=== PATIENT | male | born 1950 | race African-American/Black ===

== ENCOUNTER 2018-07-21 04:30 | Observation (INO) ==
[2018-07-21] MEDS ORDERED: MORPHINE 4 MG/1 ML VIAL IV STA (04:57)
[2018-07-21] MEDS ORDERED: ONDANSETRON 4 MG/2 ML VIAL IV ONE (04:57)
[2018-07-21] MEDS ORDERED: NITROGLYCERIN SL 0.4 MG TABLET SL STA (04:57)
[2018-07-21 05:06] LABS: Basophils % 0.2 % (0.0-0.8); Eosinophils # 0.2 10*3/uL (0.0-0.87); Eosinophils % 3.5 % (0.00-10.9); Hematocrit 37.5 VOL% (42.0-52.0); Hemoglobin 11.7 GM/DL (14.0-18.0); Immature Granulocytes % 0.7 %; Immature Granulocytes Absolute 0.03 #; Lymphocytes # 1.3 10*3/uL (1.4-4.0); Lymphocytes % 29.8 % (21.2-54.2); Mean Corpuscular HGB Conc 31.2 GM/DL (32-36); Mean Corpuscular Hemoglobin 30 PG (27-34); Mean Corpuscular Volume 96.4 FL (87-102); Mean Platelet Volume 10.1 FL (9.6-12.0); Monocytes # 0.7 10*3/uL (0.11-0.8); Monocytes % 16.7 % (1.7-12.7); Neutrophils # 2.1 10*3/uL (1.4-7.4); Neutrophils % 49.1 % (38.7-73.9); Platelet Count 211 T/CUMM (130-400); Red Blood Count 3.89 MC/CUMM (3.8-5.5); Red Cell Distribution Width 13.9 % (9.3-17.3); White Blood Count 4.3 T/CUMM (4-12)
[2018-07-21 05:27] LABS: INR 0.9; Partial Thromboplastin Time 30.5 SECS (0-40)
[2018-07-21 05:29] LABS: Alanine Aminotransferase 18 U/L (16-61); Albumin 3.3 G/DL (3.4-5.0); Alkaline Phosphatase 80 U/L (45-117); Aspartate Amino Transferase 12 U/L (0-37); Bilirubin,Total < 0.39 MG/DL (0.2-1.0); Blood Urea Nitrogen 21 MG/DL (7-18); Calcium 8.9 MG/DL (8.5-10.1); Glucose 153 MG/DL (74-106); Osmolality,Calculated 284.4 MOS/KG (273-304); Potassium 4.4 MMOL/L (3.5-5.1); Sodium 140 MMOL/L (136-145); Total Protein 6.7 G/DL (6.4-8.3)
[2018-07-21 05:40] LABS: Atypical Lymphocytes Few; Eosinophils 4 % (0-10); Lymphocytes 42 % (20-55); Segmented Neutrophils 45 % (50-85); Total Cells Counted 100
[2018-07-21 05:41] LABS: Hypochromasia 1+; Platelet Estimate Normal
[2018-07-21] MEDS ORDERED: GLUCAGON 1 MG VIAL IM PRN (06:03)
[2018-07-21] MEDS ORDERED: ONDANSETRON 4 MG/2 ML VIAL IV PRN (06:03)
[2018-07-21] MEDS ORDERED: MORPHINE 4 MG/1 ML VIAL IV PRN (06:03)
[2018-07-21] MEDS ORDERED: MAGNESIUM SULF RIDER 4 GM in PREMIX 1 EACH IV PRN (06:03)
[2018-07-21] MEDS ORDERED: NICOTINE 21 MG/24 HR PATCH TRANSDERM PRN (06:03)
[2018-07-21] MEDS ORDERED: POTASSIUM CHLORIDE 20 MEQ TABLET PO PRN (06:03)
[2018-07-21] MEDS ORDERED: MAGNESIUM SULF RIDER 2 GM in PREMIX 1 EACH IV PRN (06:03)
[2018-07-21] MEDS ORDERED: guaiFENesin/DM ER 600-30 MG TABLET PO PRN (06:03)
[2018-07-21] MEDS ORDERED: BISACODYL 5 MG TABLET PO PRN (06:03)
[2018-07-21] MEDS ORDERED: ACETAMINOPHEN 325 MG TABLET PO PRN (06:03)
[2018-07-21] MEDS ORDERED: NITROGLYCERIN SL 0.4 MG TABLET SL PRN (06:03)
[2018-07-21] MEDS ORDERED: DEXTROSE 50% 25 GM/50 ML VIAL IV PRN (06:03)
[2018-07-21] MEDS ORDERED: diphenhydrAMINE CAP 25 MG CAPSULE PO PRN (06:03)
[2018-07-21] MEDS ORDERED: AMITRIPTYLINE 10 MG TABLET PO PRN (06:10)
[2018-07-21 06:30] LABS: Risk Ratio 3.31; Thyroid Stimulating Hormone 2.38 uIU/ml (0.358-3.74); VLDL CHOLESTEROL 30.8 MG/DL
[2018-07-21 06:48] LABS: Apearance,Urine CLEAR (Clear); Bacteria,Urine Occasional /HPF (Few); Bilirubin,Urine Negative (Negative); Blood, Urine Negative (Negative); Glucose,Urine (UA) Negative (Negative); Ketones,Urine Negative (Negative); Nitrite,Urine Negative (Negative); Protein,Urine Negative; RBC,Urine <1 /HPF (0-4); Urine Color Straw (Yellow); Urine Specific Gravity 1.009 (1.001-1.035); Urine Urobilinogen < 2.0 EU/DL (0.2-1.0); WBC,Urine <1 /HPF (0-6)
[2018-07-21] MEDS ORDERED: INFLUENZA VIRUS VACCINE 0.5 ML SYRINGE IM ONE (08:00)
[2018-07-21] MEDS: ENOXAPARIN 40 MG/0.4 ML SYRINGE SUBCUT SCH (09:08)
[2018-07-21] MEDS: CITALOPRAM 20 MG TABLET PO SCH (09:16)
[2018-07-21] MEDS: CARVEDILOL 25 MG TABLET PO SCH ×2 (09:16→21:41)
[2018-07-21] MEDS: CLOPIDOGREL 75 MG TABLET PO SCH (09:16)
[2018-07-21] MEDS: hydroCHLOROthiazide 12.5 MG CAPSULE PO SCH (09:16)
[2018-07-21] MEDS: ASPIRIN 325 MG TABLET PO SCH (09:16)
[2018-07-21] MEDS: LISINOPRIL 20 MG TABLET PO SCH (09:16)
[2018-07-21] MEDS: amLODIPine 5 MG TABLET PO SCH (09:16)
[2018-07-21] MEDS: PANTOPRAZOLE 40 MG TABLET PO SCH (09:17)
[2018-07-21] MEDS: INSULIN REGULAR 100 UNIT/ML SUBCUT SCH ×2 (12:21→17:53)
[2018-07-21] MEDS ORDERED: metFORMIN 500 MG TABLET PO SCH (17:00)
[2018-07-21] MEDS: INSULIN LISPRO PROTAMINE/LISPRO 75/25 100 UNIT/ML SUBCUT SCH (18:01)
[2018-07-21] MEDS ORDERED: ATORVASTATIN 40 MG TABLET PO SCH (21:00)
[2018-07-21] MEDS: ATORVASTATIN 40 MG TABLET PO SCH (21:41)
[2018-07-22] MEDS: INSULIN REGULAR 100 UNIT/ML SUBCUT SCH ×4 (01:25→18:13)
[2018-07-22 04:41] LABS: Basophils % 0.3 % (0.0-0.8); Eosinophils # 0.1 10*3/uL (0.0-0.87); Eosinophils % 3.5 % (0.00-10.9); Hematocrit 34.9 VOL% (42.0-52.0); Immature Granulocytes % 0.3 %; Immature Granulocytes Absolute 0.01 #; Lymphocytes # 0.9 10*3/uL (1.4-4.0); Lymphocytes % 29.9 % (21.2-54.2); Mean Corpuscular HGB Conc 31.5 GM/DL (32-36); Mean Corpuscular Hemoglobin 30 PG (27-34); Mean Corpuscular Volume 95.6 FL (87-102); Mean Platelet Volume 10.3 FL (9.6-12.0); Monocytes # 0.5 10*3/uL (0.11-0.8); Monocytes % 17.4 % (1.7-12.7); Neutrophils # 1.4 10*3/uL (1.4-7.4); Neutrophils % 48.6 % (38.7-73.9); Platelet Count 188 T/CUMM (130-400); Red Blood Count 3.65 MC/CUMM (3.8-5.5); Red Cell Distribution Width 13.9 % (9.3-17.3); White Blood Count 2.9 T/CUMM (4-12)
[2018-07-22 05:05] LABS: Albumin 3.1 G/DL (3.4-5.0); Bilirubin,Total 0.6 MG/DL (0.2-1.0); Calcium 8.7 MG/DL (8.5-10.1); Osmolality,Calculated 283.3 MOS/KG (273-304); Total Protein 6.3 G/DL (6.4-8.3)
[2018-07-22 05:38] LABS: Eosinophils 4 % (0-10); Lymphocytes 40 % (20-55); Metamyelocytes 1 %; Myelocytes 2 %; Segmented Neutrophils 43 % (50-85); Total Cells Counted 100
[2018-07-22 05:39] LABS: Hypochromasia 1+; Microcytosis 1+; Platelet Estimate Adequate
[2018-07-22] MEDS: ENOXAPARIN 40 MG/0.4 ML SYRINGE SUBCUT SCH (06:13)
[2018-07-22] MEDS: ASPIRIN 325 MG TABLET PO SCH (08:43)
[2018-07-22] MEDS: CARVEDILOL 25 MG TABLET PO SCH ×2 (08:43→20:44)
[2018-07-22] MEDS: CLOPIDOGREL 75 MG TABLET PO SCH (08:43)
[2018-07-22] MEDS: CITALOPRAM 20 MG TABLET PO SCH (08:43)
[2018-07-22] MEDS: amLODIPine 5 MG TABLET PO SCH (08:43)
[2018-07-22] MEDS: LISINOPRIL 20 MG TABLET PO SCH (08:43)
[2018-07-22] MEDS: PANTOPRAZOLE 40 MG TABLET PO SCH (08:43)
[2018-07-22] MEDS: hydroCHLOROthiazide 12.5 MG CAPSULE PO SCH (08:44)
[2018-07-22] MEDS: INSULIN LISPRO PROTAMINE/LISPRO 75/25 100 UNIT/ML SUBCUT SCH (18:12)
[2018-07-22] MEDS: ATORVASTATIN 40 MG TABLET PO SCH (20:44)
[2018-07-23] MEDS: INSULIN REGULAR 100 UNIT/ML SUBCUT SCH ×3 (00:35→16:55)
[2018-07-23] MEDS: ENOXAPARIN 40 MG/0.4 ML SYRINGE SUBCUT SCH (06:31)
[2018-07-23] MEDS ORDERED: REGADENOSON 0.4 MG/5 ML SYRINGE IV ONE (12:43)
[2018-07-23] MEDS: CITALOPRAM 20 MG TABLET PO SCH (13:55)
[2018-07-23] MEDS: ASPIRIN 325 MG TABLET PO SCH (13:55)
[2018-07-23] MEDS: amLODIPine 5 MG TABLET PO SCH (13:55)
[2018-07-23] MEDS: CLOPIDOGREL 75 MG TABLET PO SCH (13:55)
[2018-07-23] MEDS: PANTOPRAZOLE 40 MG TABLET PO SCH (13:55)
[2018-07-23] MEDS: hydroCHLOROthiazide 12.5 MG CAPSULE PO SCH (13:56)
[2018-07-23] MEDS: LISINOPRIL 20 MG TABLET PO SCH (13:56)
[2018-07-23] MEDS: CARVEDILOL 25 MG TABLET PO SCH (13:56)
[2018-07-23] MEDS: clonazePAM 0.5 MG TABLET PO PRN ×2 (13:58→14:05)
[2018-07-23 15:51] VITALS: BP 141/65
[2018-07-23] MEDS ORDERED: clonazePAM 0.5 MG TABLET PO SCH (21:00)
[2018-07-24] MEDS ORDERED: clonazePAM 0.5 MG TABLET PO SCH (09:00)
== END 2018-07-23 18:12 | disposition home or self-care (01) ==
LOC: N.EDINP 04:30 → N.ED 04:30 → SUATTDRO 06:04 → N.4E 06:50
PROVIDERS: ADMIT Hospitalist; ATTEND Internal Medicine